=== PATIENT | female | born 1985 | race Two or more races ===

== ENCOUNTER 2016-06-03 14:42 | Emergency (ER) | payer MEDICAID ==
[~2016-06-03] VITALS: Ht 154.9 cm; Wt 106.1 kg
[2016-06-03] MEDS ORDERED: ONDANSETRON HCL/PF 4 MG/2 ML VIAL ONE (15:49)
[2016-06-03] MEDS ORDERED: IV NS 0.9% 1,000 ML ONE (15:49)
[2016-06-03] MEDS ORDERED: IV SET PRIMARY 1 EA INFUS.SET MC ONE (15:49)
[2016-06-03 15:52] LABS: ADD UA MICROSCOPIC NO; KETONES,URINE Negative (NEGATIVE); LEUKOCYTE ESTERASE ,URINE Negative (NEGATIVE); PH,URINE 5.5 (5.0-8.0)
[2016-06-03 15:55] LABS: PREGNANCY TEST URINE QUAL NEGATIVE (NEGATIVE)
[2016-06-03 15:55] LABS: BASOPHILS # (AUTO) 0.1 /CMM (0.0-0.2); BASOPHILS % (AUTO) 0.6 % (0.0-2.0); DIFF TOTAL % 100 %; EOSINOPHILS # (AUTO) 0.1 /CMM (0.0-0.7); EOSINOPHILS % (AUTO) 1.6 % (0.0-6.0); HEMATOCRIT 40 % (33-45); HEMOGLOBIN 13.3 g/dL (11.5-14.8); LYMPHOCYTES # (AUTO) 1.9 /CMM (0.8-4.8); LYMPHOCYTES % (AUTO) 21.2 % (20.0-44.0); MEAN CORPUSCULAR HEMOGLOBIN 28 PG (26.0-33.0); MEAN CORPUSCULAR HGB CONC 33 g/dl (31.0-36.0); MEAN CORPUSCULAR VOLUME 85 fL (82-100); MONOCYTES # (AUTO) 0.5 /CMM (0.1-1.30); MONOCYTES % (AUTO) 5.9 % (2.0-12.0); NEUTROPHILS # (AUTO) 6.4 /CMM (1.8-8.9); NEUTROPHILS % (AUTO) 70.7 % (43.0-81.0); PLATELET COUNT (AUTO) 269 /CMM (150-450); RED BLOOD CELL COUNT(AUTO) 4.71 MIL/uL (4.0-5.2)
[2016-06-03] MEDS ORDERED: IV NS 0.9% 1,000 ML BAG IV ONE (16:00)
[2016-06-03] MEDS ORDERED: ONDANSETRON HCL/PF 4 MG/2 ML VIAL IVP ONE (16:00)
[2016-06-03 16:03] LABS: CALCIUM, SERUM 8.3 mg/dL (8.5-10.1); CREATININE 0.9 mg/dL (0.6-1.3)
[2016-06-03 16:09] LABS: ALBUMIN 3.5 g/dL (3.4-5.0); BILIRUBIN,DIRECT 0.1 mg/dL (0.0-0.2); BILIRUBIN,TOTAL 0.3 mg/dL (0.2-1.0); INDIRECT BILIRUBIN 0.2 mg/dL (0.0-1.1); TOTAL PROTEIN, SERUM 7.2 g/dL (6.4-8.2)
[2016-06-03 17:17] VITALS: BP 150/81
== END 2016-06-03 17:18 | disposition home or self-care (01) ==
LOC: ER 14:44
DX: K52.9 Noninfective gastroenteritis and colitis, unspecified (principal); E86.0 Dehydration
CPT/HCPCS: 36415; 80048; 80076; 81001; 83690; 84703; 85025; 96361; 96374; 99284; A4606; J2405; J7030; Z7610; 81000-TC

== ENCOUNTER 2016-06-14 11:18 | Emergency (ER) | payer MEDICAID ==
[~2016-06-14] VITALS: Ht 154.9 cm; Wt 105.2 kg
[2016-06-14 11:30] VITALS: BP 148/68
== END 2016-06-14 11:59 | disposition home or self-care (01) ==
LOC: ER 11:19
DX: B34.9 Viral infection, unspecified (principal); Z90.49 Acquired absence of other specified parts of digestive tract
CPT/HCPCS: A4606; Z7610

== ENCOUNTER 2018-08-24 09:56 | Emergency (ER) | payer MEDICAID ==
[~2018-08-24] VITALS: Ht 154.9 cm; Wt 109.3 kg
[2018-08-24 10:18] VITALS: BP 145/97
[2018-08-24] MEDS: MORPHINE SULFATE INJ 2 MG/ML DISP.SYRIN IM ONE (11:00)
[2018-08-24] MEDS: KETOROLAC TROMETHAMINE INJ 60 MG/2 ML VIAL IM ONE (11:00)
[2018-08-24] MEDS ORDERED: KETOROLAC TROMETHAMINE INJ 60 MG/2 ML VIAL IM ONE (11:29)
[2018-08-24] MEDS ORDERED: MORPHINE SULFATE INJ 4 MG/ML DISP.SYRIN ONE (11:29)
== END 2018-08-24 12:31 | disposition home or self-care (01) ==
LOC: ER 09:56
DX: S39.012A Strain of muscle, fascia and tendon of lower back, initial encounter (principal); F10.10 Alcohol abuse, uncomplicated; Y90.9 Presence of alcohol in blood, level not specified; Z90.49 Acquired absence of other specified parts of digestive tract; X50.1XXA Overexertion from prolonged static or awkward postures, initial encounter; Y93.89 Activity, other specified; Y92.89 Other specified places as the place of occurrence of the external cause; Y99.0 Civilian activity done for income or pay
CPT/HCPCS: 84703; 96372 ×2; 99283; J1885; J2270